=== PATIENT | female | born 1985 | race Caucasian/White ===

== ENCOUNTER 2017-02-21 11:31 | Emergency (ER) | payer OTHER ==
[~2017-02-21] VITALS: Ht 157.5 cm; Wt 64.0 kg
[~2017-02-21 11:31] MED LIST: IBUP800T23 PO
[2017-02-21 11:33] VITALS: BP 134/77; PULSE 80; RESP 20; TEMP 98.1; O2SAT 100; O2SAT 20
[2017-02-21] MEDS ORDERED: SODIUM CHLORIDE 0.9% FLUSH 10 ML FLUSH IV FLUSH PRN (12:00)
[2017-02-21] MEDS ORDERED: SODIUM CHLOR 0.9% 1000 ML INJ 1,000 ML IV SCH (12:00)
[2017-02-21] MEDS ORDERED: ONDANSETRON HCL 4 MG/2 ML VIAL IVP ONE (12:00)
[2017-02-21 12:03] VITALS: BP 118/79; PULSE 72; RESP 20; O2SAT 100
[2017-02-21 12:04] VITALS: RESP 20; O2SAT 98
[2017-02-21] MEDS ORDERED: KETOROLAC TROMETHAMINE 30 MG/ML (IVP) VIAL IV PUSH ONE (12:15)
[2017-02-21] MEDS ORDERED: TETANUS/DIPHTHERIA TOXOID ADULT 0.5 ML VIAL IM ONE (12:15)
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
[2017-02-21 12:51] LABS: AUTOMATED NEUTROPHIL # 9.8 TH/MM3 (1.8-7.7); BASOPHIL # 0.1 TH/MM3 (0-0.2); BASOPHIL % 0.5 % (0.0-2.0); EOSINOPHIL # 0.1 TH/MM3 (0-0.4); EOSINOPHIL % 0.5 % (0.0-4.0); HEMATOCRIT 37.8 % (35.0-46.0); LYMPH % 19.7 % (9.0-44.0); LYMPHOCYTE # 2.7 TH/MM3 (1.0-4.8); MEAN CELL VOLUME 86.5 FL (80.0-100.0); MEAN CORPUSCULAR HEMOGLOBIN 29.6 PG (27.0-34.0); MEAN CORPUSCULAR HGB CONC 34.2 % (32.0-36.0); MONO % 8.1 % (0.0-8.0); NEUT % 71.2 % (16.0-70.0); PLATELET COUNT 287 TH/MM3 (150-450); RED BLOOD COUNT 4.36 MIL/MM3 (4.00-5.30); RED CELL DISTRIBUTION WIDTH 13.4 % (11.6-17.2); WHITE BLOOD COUNT 13.7 TH/MM3 (4.0-11.0)
[2017-02-21 13:01] LABS: BLOOD, URINE NEG (NEG); COMMENT (UR) CULTURE INDICATED; CULTURE IF INDICATED CULTURE INDICATED; GLUCOSE,URINE NEG (NEG); KETONE, URINE 40 mg/dL (NEG); NITRITE,URINE NEG (NEG); SQUAMOUS EPITHELIAL CELL URINE 5 /hpf (0-5); URINE COLOR LIGHT-YELLOW (YELLW/STRAW)
--- NOTE | 2017-02-21 13:06 | RADRPT ---
EXAM DATE/TIME: 02/21/2017 12:09 [facility] COMPARISON: No previous studies available for comparison. INDICATIONS : Left foot pain MEDICAL HISTORY : None. SURGICAL HISTORY : None. ENCOUNTER: Initial ACUITY: 1 day PAIN SCORE: 2/10 LOCATION: Left Foot FINDINGS: Three view examination of the left foot demonstrates no dislocation, or fracture. There is soft tis raman swelling seen lateral to the fifth metatarsal head.The tarsal bones appear intact. The interphal angeal and metatarsophalangeal joints are intact. The calcaneus is intact. Bony mineralization is n ormal. CONCLUSION: Mild lateral soft tissue swelling. An acute bony injury is not seen. Alan Calderon MD on February 21, 2017 at 13:03 Board Certified Radiologist. This report was verified electronically.
[2017-02-21 13:07] LABS: HEMO FLAGS AUTO DIFF
--- NOTE | 2017-02-21 13:08 | RADRPT ---
EXAM DATE/TIME: 02/21/2017 12:12 [facility] COMPARISON: No previous studies available for comparison. INDICATIONS : Right wrist pain MEDICAL HISTORY : None. SURGICAL HISTORY : None. ENCOUNTER: Initial ACUITY: 1 day PAIN SCORE: 10/10 LOCATION: Right wrsit FINDINGS: Three view examination of the right wrist demonstrates no soft tissue swelling, dislocation, or wrist fracture. There is a fracture of the distal fourth metacarpal. The carpal bones are in normal align ment. The joint spaces are maintained. Bony mineralization is normal. CONCLUSION: Fourth metacarpal fracture. The carpal bones appear aligned. Alan Calderon MD on February 21, 2017 at 13:05 Board Certified Radiologist. This report was verified electronically.
[2017-02-21] MEDS ORDERED: cefTRIAXone INJ 1,000 MG in SODIUM CHLORIDE 0.9% INJ 100 ML IV ONE (13:15)
--- NOTE | 2017-02-21 13:19 | RADRPT ---
EXAM DATE/TIME: 02/21/2017 12:11 [facility] COMPARISON: No previous studies available for comparison. INDICATIONS : Right hand pain MEDICAL HISTORY : None. SURGICAL HISTORY : None. ENCOUNTER: Initial ACUITY: 1 day PAIN SCORE: 10/10 LOCATION: Right Hand FINDINGS: There is fracture of the distal fourth metacarpal with some volar angulation. The remaining bones ap pear grossly intact. CONCLUSION: Distal fourth metacarpal fracture. Alan Calderon MD on February 21, 2017 at 13:05 Board Certified Radiologist. This report was verified electronically.
[2017-02-21 13:20] LABS: SCAN/DIFF AUTO DIFF CONFIRMED
[2017-02-21 13:22] LABS: ALKALINE PHOSPHATASE 56 U/L (45-117); ALT (GPT) 18 U/L (10-53); ANION GAP 13 MEQ/L (5-15); AST (GOT) 23 U/L (15-37); BICARBONATE 18.6 MEQ/L (21.0-32.0); BLOOD UREA NITROGEN 5 MG/DL (7-18); CHLORIDE 108 MEQ/L (98-107); GLOMERULAR FILTRATION RATE 90 ML/MIN (>89); SODIUM (NA) 140 MEQ/L (136-145)
[2017-02-21 13:27] LABS: POTASSIUM 3.4 MEQ/L (3.5-5.1)
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
[2017-02-21] MEDS ORDERED: IBUP800T23 PO (15:09)
[2017-02-21] MEDS ORDERED: CIPR250T52 PO (15:31)
[2017-02-21 16:11] VITALS: BP 126/80; PULSE 74; RESP 18; O2SAT 98
[2017-02-21 16:12] VITALS: RESP 18
== END 2017-02-21 16:31 | disposition home or self-care (01) ==
LOC: NEPC 11:31
DX: S62.304A Unspecified fracture of fourth metacarpal bone, right hand, initial encounter for closed fracture (principal); S01.01XA Laceration without foreign body of scalp, initial encounter; S40.021A Contusion of right upper arm, initial encounter; M79.672 Pain in left foot; N30.90 Cystitis, unspecified without hematuria; B96.89 Other specified bacterial agents as the cause of diseases classified elsewhere; Y09 Assault by unspecified means; Z23 Encounter for immunization
CPT/HCPCS: 12001; 29125; 70450; 70486; 72125; 73110; 73130; 73630; 80053; 81001; 84703; 85025; 87086; 90471; 90714; 96361; 96365; 96375; 99284; J0696; J1885; J2405; J7030

== ENCOUNTER 2017-03-04 20:41 | Emergency (ER) | payer OTHER ==
[~2017-03-04] VITALS: Ht 172.7 cm; Wt 75.0 kg
[~2017-03-04 20:41] MED LIST changes: +CIPR250T52 PO
[2017-03-04 20:43] VITALS: BP 131/79; PULSE 74; RESP 15; TEMP 98.6; O2SAT 100
--- NOTE | 2017-03-04 21:30 | PD ---
HPI Chief Complaint: Wound/Suture/Staple Re-Check Time Seen by Provider: 21:30 Travel History International Travel<30 days: No Contact w/Intl Traveler<30days: No Traveled to known affect area: No History of Present Illness HPI 31-year-old female presents to the emergency department for evaluation and removal of kam from her frontal scalp, placed February 22. Patient states she has been healing well. Denies any pain. No local swelling or drainage. She has no other symptoms to report. PFSH Past Medical History Asthma: Yes Depression: Yes Cardiovascular Problems: Yes ("LEAKY VALVES") Diabetes: No Diminished Hearing: No Fibromyalgia: Yes Respiratory: Yes (ASTHMA) Tubal Ligation: Yes Past Surgical History Gynecologic Surgery: Yes (tubal ligation) Social History Alcohol Use: No Tobacco Use: Yes (dip 2 cans snuff daily) Substance Use: No Allergies-Medications (Allergen,Severity, Reaction): Coded Allergies: Bactrim (Verified Allergy, Severe, RASH, 03/04/17) Reported Meds & Prescriptions Reported Meds & Active Scripts Active Cipro (Ciprofloxacin HCl) 250 Mg Tab 250 Mg PO BID 3 Days Ibuprofen 800 Mg Tab 800 Mg PO Q8H PRN Review of Systems Except as stated in HPI: all other systems reviewed are Neg Physical Exam Narrative GENERAL: Well-nourished, well-developed female patient in no acute distress SKIN: Focused skin assessment warm/dry. HEAD: Normocephalic. 1-1/2 cm well approximated laceration of the frontal scalp. [address] No drainage, erythema, or edema. EYES: No scleral icterus. No injection or drainage. NECK: Supple, trachea midline. No JVD or lymphadenopathy. CARDIOVASCULAR: Regular rate and rhythm without murmurs, gallops, or rubs. RESPIRATORY: Breath sounds equal bilaterally. No accessory muscle use. MUSCULOSKELETAL: No cyanosis, or edema. Splint right upper extremity. BACK: Nontender without obvious deformity. No CVA tenderness. Data Data Last Documented VS Vital Signs Date Time Temp Pulse Resp B/P Pulse Ox O2 Delivery O2 Flow Rate FiO2 03/04/17 20:43 98.6 74 15 131/79 100 Room Air MDM Medical Decision Making Medical Screen Exam Complete: Yes Emergency Medical Condition: Yes Medical Record Reviewed: Yes Differential Diagnosis Laceration versus healing wound versus infected wound Narrative Course 31-year-old female presents to the emergency department for staple removal. 2 kam are removed from the laceration the frontal scalp. Patient tolerated this well. She is counseled on wound care. She agrees to return immediately with any acute worsening of symptoms. Diagnosis Primary Impression: Scalp laceration Qualified Code: S01.01XD - Scalp laceration, subsequent encounter Additional Impression: Removal of kam Referrals: Primary Care Physician Patient Instructions: Acute Wound Care (ED), General Instructions Additional Instructions: Avoid picking scabs Follow-up with primary care provider Return immediately with any acute worsening of symptoms Med/Other Pt SpecificInfo: No Change to Meds Disposition: 01 DISCHARGE HOME Condition: Stable Francie Powers March 04, 2017 21:30
== END 2017-03-04 22:03 | disposition home or self-care (01) ==
LOC: NEPK 20:41
DX: S01.01XD Laceration without foreign body of scalp, subsequent encounter (principal); X58.XXXD Exposure to other specified factors, subsequent encounter; Z48.02 Encounter for removal of sutures
CPT/HCPCS: 99281

== ENCOUNTER 2017-05-19 12:50 | Emergency (ER) | payer SELFPAY ==
[~2017-05-19] VITALS: Ht 157.5 cm; Wt 70.0 kg
[2017-05-19 12:52] VITALS: BP 109/75; PULSE 70; RESP 20; TEMP 98.2; O2SAT 99
[2017-05-19] MEDS ORDERED: LORA-392 PO (14:53)
[2017-05-19] MEDS ORDERED: LURA20TA PO (14:53)
[2017-05-19] MEDS ORDERED: RESP: ALBUTEROL 2.5 MG/3 ML NEB (SCH) INH ONE (15:00)
[2017-05-19] MEDS ORDERED: DEXAMETHASONE SOD PHOS 20 MG/5 ML VIAL IV PUSH ONE (15:00)
--- NOTE | 2017-05-19 15:38 | PD ---
HPI Chief Complaint: Respiratory Symptoms Time Seen by Provider: 15:33 Travel History International Travel<30 days: No Contact w/Intl Traveler<30days: No Traveled to known affect area: No History of Present Illness HPI 31-year-old female that presents to the ED for evaluation of choking episode. Per patient she had this choking episode yesterday. Per patient she does have a history of asthma but she has had no issues for 5 years. Per patient she was able to get herself back together after the choking episode was last about 2 minutes. Per patient every time she tried of fall sleep she felt like she was choking. She denies any pain of any kind. She does chew tobacco. She denies . No pain of any kind. No cough or runny nose. No fevers chills or sweats. No dysphagia. Allergy to Bactrim. Has not seen anybody for this. Has not taken anything for this. PFSH Past Medical History Asthma: Yes Depression: Yes Cardiovascular Problems: Yes ("LEAKY VALVES") Diabetes: No Diminished Hearing: No Fibromyalgia: Yes Respiratory: Yes (asthma) Influenza Vaccination: No ?: Not LMP: 05-22-17 Tubal Ligation: Yes Past Surgical History Gynecologic Surgery: Yes (tubal ligation) Social History Alcohol Use: No (occ ) Tobacco Use: Yes (dip 2 cans snuff daily) Substance Use: No Allergies-Medications (Allergen,Severity, Reaction): Coded Allergies: Bactrim (Verified Allergy, Severe, RASH, 05/19/17) Reported Meds & Prescriptions Reported Meds & Active Scripts Active Proair Hfa 8.5 GM Inh (Albuterol Sulfate) 90 Mcg/Act Aer 2 Puff INH Q4-6H PRN 108 mcg/actuation Prednisone 20 Mg Tab 20 Mg PO BID Reported Ativan (Lorazepam) 0.5 Mg Tab 0.5 Mg PO DAILY PRN Latuda (Lurasidone) 20 Mg Tab 20 Mg PO DAILY Review of Systems Except as stated in HPI: all other systems reviewed are Neg Physical Exam Narrative GENERAL: SKIN: Warm and dry. HEAD: Atraumatic. Normocephalic. EYES: Pupils equal and round. No scleral icterus. No injection or drainage. ENT: No nasal bleeding or discharge. Mucous membranes pink and moist. Tongue is midline. No uvula deviation. No obvious deformity noted on the throat. TMs are clear with no sign of infection or perforation. No sinus tenderness. Nostril are patent bilaterally. No lymphadenopathy noted. NECK: Trachea midline. No JVD. CARDIOVASCULAR: Regular rate and rhythm. No murmurs, S3, S4. RESPIRATORY: No accessory muscle use. Clear to auscultation. Breath sounds equal bilaterally. GASTROINTESTINAL: Abdomen soft, non-tender, nondistended. Hepatic and splenic margins not palpable. MUSCULOSKELETAL: Extremities without clubbing, cyanosis, or edema. No obvious deformities. Full range of motion of the upper and lower extremities bilaterally. 2+ pulses bilaterally. NEUROLOGICAL: Awake and alert. No obvious cranial nerve deficits. Motor grossly within normal limits. Five out of 5 muscle strength in the arms and legs. Normal speech. PSYCHIATRIC: Appropriate mood and affect; insight and judgment normal. Data Data Last Documented VS Vital Signs Date Time Temp Pulse Resp B/P Pulse Ox O2 Delivery O2 Flow Rate FiO2 05/19/17 15:56 98 Room Air 05/19/17 14:50 70 18 05/19/17 12:52 98.2 109/75 Orders Complete Blood Count With Diff (05/19/17 14:56) Basic Metabolic Panel (Bmp) (05/19/17 14:56) Magnesium (Mg) (05/19/17 14:56) Thyroid Stimulating Hormone (05/19/17 14:56) Iv Access Insert/Monitor (05/19/17 14:56) Ecg Monitoring (05/19/17 14:56) Oximetry (05/19/17 14:56) Dexamethasone Inj (Decadron Inj) (05/19/17 15:00) Ct Soft Tiss Neck W Iv Cont (05/19/17 ) Albuterol Neb (Albuterol Neb) (05/19/17 15:00) Iohexol 350 Inj (Omnipaque 350 Inj) (05/19/17 16:13) Labs Laboratory Tests Test 05/19/17 15:26 White Blood Count 8.0 TH/MM3 Red Blood Count 4.40 MIL/MM3 Hemoglobin 13.4 GM/DL Hematocrit 39.0 % Mean Corpuscular Volume 88.7 FL Mean Corpuscular Hemoglobin 30.5 PG Mean Corpuscular Hemoglobin 34.3 % Concent Red Cell Distribution Width 13.4 % Platelet Count 335 TH/MM3 Mean Platelet Volume 9.4 FL Neutrophils (%) (Auto) 54.2 % Lymphocytes (%) (Auto) 31.6 % Monocytes (%) (Auto) 7.2 % Eosinophils (%) (Auto) 6.2 % Basophils (%) (Auto) 0.8 % Neutrophils # (Auto) 4.4 TH/MM3 Lymphocytes # (Auto) 2.5 TH/MM3 Monocytes # (Auto) 0.6 TH/MM3 Eosinophils # (Auto) 0.5 TH/MM3 Basophils # (Auto) 0.1 TH/MM3 CBC Comment DIFF FINAL Differential Comment Sodium Level 140 MEQ/L Potassium Level 3.2 MEQ/L Chloride Level 104 MEQ/L Carbon Dioxide Level 26.3 MEQ/L Anion Gap 10 MEQ/L Blood Urea Nitrogen 2 MG/DL Creatinine 0.74 MG/DL Estimat Glomerular Filtration 91 ML/MIN Rate Random Glucose 83 MG/DL Calcium Level 9.1 MG/DL Magnesium Level 2.1 MG/DL Thyroid Stimulating Hormone 1.550 uIU/ML 3rd Gen [facility] Medical Decision Making Medical Screen Exam Complete: Yes Emergency Medical Condition: Yes Medical Record Reviewed: Yes Interpretation(s) CBC & BMP Diagram 05/19/17 15:26 CT neck negative Differential Diagnosis Choking episode versus pharyngitis versus asthma versus abscess versus mass versus epiglottitis less likely Narrative Course 31-year-old female that presents to the ED for evaluation of possible choking episode. Patient was properly examined and was found to have no signs of acute medical distress. Patient does chew tobacco. She has no pain on her throat. At this time because of the episodes that she is having on her tobacco history do recommend imaging to make sure patient doesn't have a mass or infection developing causing the choking episode. She will be given dexamethasone here as well as albuterol inhaler here. She has no signs of anaphylaxis or appears to be in any distress. Labs and imaging showed no sign of acute disease. Patient is in acute distress at this time. Physical exam is reassuring. At this time I recommend close follow with PCP. Patient was given a prescription for prednisone and apparently had a she does have some wheezing on exam. Told to follow closely with PCP. See ED worsening symptoms. Stop using chewing tobacco. Diagnosis Primary Impression: Pharyngitis Qualified Code: J02.9 - Pharyngitis, unspecified etiology Additional Impression: Asthma Qualified Code: J45.20 - Mild intermittent asthma without complication Patient Instructions: General Instructions Additional Instructions: Take meds as prescribed. Follow-up with PCP. See ED worsening symptoms. Med/Other Pt SpecificInfo: Prescription(s) given Scripts Albuterol 8.5 GM Inh (Proair Hfa 8.5 GM Inh)90 Mcg/Act Aer2 Puff INH Q4-6H PRN ( SHORTNESS OF BREATH) #1 INHALER 108 mcg/actuation Prov:Li Mueller MD 05/19/17 Prednisone 20 Mg Tab20 Mg PO BID #10 TAB Prov:Li Mueller MD 05/19/17 Disposition: 01 DISCHARGE HOME Condition: Stable Matthew Adler May 19, 2017 15:38
[2017-05-19 15:53] LABS: AUTOMATED NEUTROPHIL # 4.4 TH/MM3 (1.8-7.7); BASOPHIL # 0.1 TH/MM3 (0-0.2); BASOPHIL % 0.8 % (0.0-2.0); EOSINOPHIL # 0.5 TH/MM3 (0-0.4); EOSINOPHIL % 6.2 % (0.0-4.0); HEMO FLAGS DIFF FINAL; LYMPH % 31.6 % (9.0-44.0); LYMPHOCYTE # 2.5 TH/MM3 (1.0-4.8); MEAN CELL VOLUME 88.7 FL (80.0-100.0); MEAN CORPUSCULAR HEMOGLOBIN 30.5 PG (27.0-34.0); MEAN CORPUSCULAR HGB CONC 34.3 % (32.0-36.0); MONO % 7.2 % (0.0-8.0); NEUT % 54.2 % (16.0-70.0); PLATELET COUNT 335 TH/MM3 (150-450); RED CELL DISTRIBUTION WIDTH 13.4 % (11.6-17.2)
[2017-05-19 15:56] VITALS: O2SAT 98
[2017-05-19] MEDS ORDERED: IOHEXOL 350 MG/ML 10 ML VIAL (for RAD DIAG) IV ONE (16:13)
[2017-05-19 16:20] LABS: BICARBONATE 26.3 MEQ/L (21.0-32.0); MAGNESIUM 2.1 MG/DL (1.5-2.5); POTASSIUM 3.2 MEQ/L (3.5-5.1)
--- NOTE | 2017-05-19 16:42 | RADRPT ---
EXAM DATE/TIME: 05/19/2017 16:09 [place] COMPARISON: No previous studies available for comparison. INDICATIONS : Patient complains of cough,congestion, evaluate for abscess. IV CONTRAST: 55 cc Omnipaque 350 (iohexol) IV RADIATION DOSE: <14.12> CTDIvol (mGy) MEDICAL HISTORY : Cardiovascular disease. asthma SURGICAL HISTORY : Tubal ligation. ENCOUNTER: Initial ACUITY: 1 day PAIN SCALE: 2/10 LOCATION: neck TECHNIQUE: Volumetric scanning of the neck was performed. Using automated exposure control and adjustment of th e mA and/or kV according to patient size, radiation dose was kept as low as reasonably achievable to obtain optimal diagnostic quality images. DICOM format image data is available electronically for r eview and comparison. FINDINGS: NASOPHARYNX: The nasopharyngeal airway has a normal configuration. No mucosal thickening or mass is seen. OROPHARYNX: The intrinsic muscles of the tongue are symmetric. The tonsillar pillars are intact. The prevertebr al soft tissues are not thickened. LARYNX: The supraglottic, glottic, and infraglottic structures are intact. PARAPHARYNGEAL: The parapharyngeal space is intact. SALIVARY GLANDS: The parotid and submandibular glands are intact. LYMPH NODES: No enlarged or necrotic-appearing nodes. THYROID: Homogeneous enhancement without evidence of nodule. BONES: Unremarkable. CONCLUSION: Normal examination. Normal reactive lymph nodes throughout the neck. Benigno Galarza MD on May 19, 2017 at 16:36 Board Certified Radiologist. This report was verified electronically.
[2017-05-19] MEDS ORDERED: PRED20 PO (16:46)
[2017-05-19] MEDS ORDERED: ALBUAER3 INH (16:46)
== END 2017-05-19 17:21 | disposition home or self-care (01) ==
LOC: NEPE 12:50
DX: J02.9 Acute pharyngitis, unspecified (principal); J45.909 Unspecified asthma, uncomplicated; R09.89 Other specified symptoms and signs involving the circulatory and respiratory systems; F32.9 Major depressive disorder, single episode, unspecified; M79.7 Fibromyalgia; F17.220 Nicotine dependence, chewing tobacco, uncomplicated; Z79.899 Other long term (current) drug therapy
CPT/HCPCS: 70491; 80048; 83735; 84443; 85025; 94664; 96374; 99285; J1100; J7613; Q9967

== ENCOUNTER 2017-06-19 14:46 | Emergency (ER) | payer OTHER ==
[~2017-06-19] VITALS: Ht 167.6 cm; Wt 70.0 kg
[~2017-06-19 14:46] MED LIST changes: +ALBUAER3 INH; -CIPR250T52 PO; -IBUP800T23 PO; +LORA-392 PO; +LURA20TA PO; +PRED20 PO
--- NOTE | 2017-06-19 14:52 | PD ---
HPI Chief Complaint: Psychiatric Symptoms Time Seen by Provider: 14:52 Travel History International Travel<30 days: No Contact w/Intl Traveler<30days: No History of Present Illness HPI 32-year-old female brought in under the Burch act with reported overdose of number 160, 200 mg ibuprofen by mouth prostate 3 and half hours prior to arrival. Patient has a history of schizophrenia and schizoaffective disorder, and has been off her meds for approximately 2 weeks according to the police report. Patient was at her work when she was witnessed to have supposedly ingested this amount of ibuprofen. Patient is currently asymptomatic. She is allergic to sulfa. PFSH Past Medical History Asthma: Yes Depression: Yes Cardiovascular Problems: Yes ("LEAKY VALVES") Diabetes: No Diminished Hearing: No Fibromyalgia: Yes Respiratory: Yes (asthma) Tubal Ligation: Yes Past Surgical History Gynecologic Surgery: Yes (tubal ligation) Social History Alcohol Use: No (occ ) Tobacco Use: Yes (dip 2 cans snuff daily) Substance Use: No Allergies-Medications (Allergen,Severity, Reaction): Coded Allergies: sulfamethoxazole (Unverified Allergy, Severe, RASH, 06/19/17) trimethoprim (Unverified Allergy, Severe, RASH, 06/19/17) Reported Meds & Prescriptions Reported Meds & Active Scripts Active Proair Hfa 8.5 GM Inh (Albuterol Sulfate) 90 Mcg/Act Aer 2 Puff INH Q4-6H PRN 108 mcg/actuation Reported Ativan (Lorazepam) 0.5 Mg Tab 0.5 Mg PO DAILY PRN Latuda (Lurasidone) 20 Mg Tab 20 Mg PO DAILY Review of Systems ROS Limitations: Uncooperative Except as stated in HPI: all other systems reviewed are Neg General / Constitutional: No: Fever Eyes: No: Visual changes HENT: No: Headaches Cardiovascular: No: Chest Pain or Discomfort Respiratory: No: Shortness of Breath Gastrointestinal: No: Abdominal Pain Genitourinary: No: Dysuria Musculoskeletal: No: Pain Skin: No Rash Neurologic: No: Weakness Psychiatric: No: Depression Endocrine: No: Polydipsia Hematologic/Lymphatic: No: Easy Bruising Physical Exam Narrative GENERAL: Patient is resting on the exam table in no acute distress. SKIN: Warm and dry. Normal color. Normal turgor. Patient is noted to have an old bruise under the left eye. HEAD: Atraumatic. Normocephalic. Nontender EYES: Pupils equal and round. No scleral icterus. No injection or drainage. ENT: No nasal bleeding or discharge. Mucous membranes pink and moist. Pharynx is clear. Airway is patent. NECK: Trachea midline. Supple. CARDIOVASCULAR: Regular rate and rhythm. RESPIRATORY: No accessory muscle use. Clear to auscultation. Breath sounds equal bilaterally. GASTROINTESTINAL: Abdomen soft, non-tender, nondistended. Hepatic and splenic margins not palpable. MUSCULOSKELETAL: Extremities without clubbing, cyanosis, or edema. No obvious deformities. NEUROLOGICAL: Awake and alert. No obvious cranial nerve deficits. Motor grossly within normal limits. Five out of 5 muscle strength in the arms and legs. Normal speech. PSYCHIATRIC: Appropriate mood and affect; insight and judgment normal. Data Data Last Documented VS Vital Signs Date Time Temp Pulse Resp B/P Pulse Ox O2 Delivery O2 Flow Rate FiO2 06/19/17 18:00 106 16 98/67 98 Room Air 06/19/17 15:13 98.8 Orders Electrocardiogram (06/19/17 15:20) Complete Blood Count With Diff (06/19/17 15:20) Comprehensive Metabolic Panel (06/19/17 15:20) Prothrombin Time / Inr (Pt) (06/19/17 15:20) Act Partial Throm Time (Ptt) (06/19/17 15:20) Osmolality,Serum (06/19/17 15:20) Urinalysis - C+S If Indicated (06/19/17 15:20) Iv Access Insert/Monitor (06/19/17 15:20) Cath For Specimen (06/19/17 15:20) Ecg Monitoring (06/19/17 15:20) Oximetry (06/19/17 15:20) Psych Screen (06/19/17 15:20) Sodium Chloride 0.9% Flush (Ns Flush) (06/19/17 15:30) Sodium Chlor 0.9% 1000 Ml Inj (Ns 1000 M (06/19/17 15:20) Call Poison Control (06/19/17 15:20) Drug Screen, Random Urine (06/19/17 15:20) Alcohol (Ethanol) (06/19/17 15:20) Salicylates (Aspirin) (06/19/17 15:20) Tylenol (Acetaminophen) (06/19/17 15:20) Ed Urine Pregnancytest Poc (06/19/17 16:23) Arterial Blood Gas (Abg) (06/19/17 17:40) Salicylates (Aspirin) (06/19/17 17:40) Labs Laboratory Tests Test 06/19/17 06/19/17 06/19/17 06/19/17 15:35 15:40 18:00 18:15 Urine Color LIGHT-YELLOW Urine Turbidity CLEAR Urine pH 5.5 Urine Specific [place] 1.007 Urine Protein NEG mg/dL Urine Glucose (UA) NEG mg/dL Urine Ketones NEG mg/dL Urine Occult Blood NEG Urine Nitrite NEG Urine Bilirubin NEG Urine Urobilinogen LESS THAN 2.0 MG/DL Urine Leukocyte Esterase TRACE Urine RBC LESS THAN 1 /hpf Urine WBC 1 /hpf Urine Squamous Epithelial 1 /hpf Cells Urine Mucus FEW /lpf Microscopic Urinalysis Comment CULT NOT INDICATED Urine Opiates Screen NEG Urine Barbiturates Screen NEG Urine Amphetamines Screen NEG Urine Benzodiazepines Screen NEG Urine Cocaine Screen NEG Urine Cannabinoids Screen NEG White Blood Count 7.9 TH/MM3 Red Blood Count 4.19 MIL/MM3 Hemoglobin 12.8 GM/DL Hematocrit 37.7 % Mean Corpuscular Volume 90.1 FL Mean Corpuscular Hemoglobin 30.5 PG Mean Corpuscular Hemoglobin 33.9 % Concent Red Cell Distribution Width 13.4 % Platelet Count 238 TH/MM3 Mean Platelet Volume 9.9 FL Neutrophils (%) (Auto) 64.7 % Lymphocytes (%) (Auto) 23.1 % Monocytes (%) (Auto) 9.8 % Eosinophils (%) (Auto) 2.0 % Basophils (%) (Auto) 0.4 % Neutrophils # (Auto) 5.1 TH/MM3 Lymphocytes # (Auto) 1.8 TH/MM3 Monocytes # (Auto) 0.8 TH/MM3 Eosinophils # (Auto) 0.2 TH/MM3 Basophils # (Auto) 0.0 TH/MM3 CBC Comment DIFF FINAL Differential Comment Prothrombin Time 11.3 SEC Prothromb Time International 1.0 RATIO Ratio Activated Partial 30.8 SEC Thromboplast Time Sodium Level 138 MEQ/L Potassium Level 4.0 MEQ/L Chloride Level 106 MEQ/L Carbon Dioxide Level 22.8 MEQ/L Anion Gap 9 MEQ/L Blood Urea Nitrogen 11 MG/DL Creatinine 0.77 MG/DL Estimat Glomerular Filtration 86 ML/MIN Rate Random Glucose 92 MG/DL Serum Osmolality 292 MOSM/KG Calcium Level 8.2 MG/DL Total Bilirubin 0.4 MG/DL Aspartate Amino Transf 14 U/L (AST/SGOT) Alanine Aminotransferase 18 U/L (ALT/SGPT) Alkaline Phosphatase 59 U/L Total Protein 7.0 GM/DL Albumin 4.3 GM/DL Salicylates Level LESS THAN 1.7 LESS THAN 1.7 MG/DL MG/DL Acetaminophen Level LESS THAN 2.0 MCG/ML Ethyl Alcohol Level LESS THAN 3 MG/DL Blood Gas Puncture Site RT RADIAL Blood Gas Patient Temperature 98.6 Blood Gas HCO3 15 mmol/L Blood Gas Base Excess -9.2 mmol/L Blood Gas Oxygen Saturation 97 % Arterial Blood pH 7.36 Arterial Blood Partial 28 mmHg Pressure CO2 Arterial Blood Partial 122 mmHG Pressure O2 Arterial Blood Oxygen Content 17.7 Vol % Arterial Blood 0.8 % Carboxyhemoglobin Arterial Blood Methemoglobin 0.5 % Blood Gas Hemoglobin 12.8 G/DL Blood Gas Inspired Oxygen 21 % MDM Medical Decision Making Medical Screen Exam Complete: Yes Emergency Medical Condition: Yes Differential Diagnosis Ibuprofen overdose. Suicidal ideation. Psychiatric symptoms. Burch act. Narrative Course Patient appears medically stable at time of exam. Labs ordered including CBC, CMP, serum EtOH, serum Tylenol, serum salicylate level. Coagulation studies and serum osmolality ordered. Urinalysis, and urine . Urine drug screen is ordered as well. IV access is obtained patient is given 1000 mg normal saline bolus. Poison control was contacted, and they recommended observing the patient for at least 3-4 hours and watch for abdominal symptoms and acidosis. CBC is unremarkable. Coagulation studies are unremarkable. Urine drug screen negative. Serum salicylate level is 1.7. Serum acetaminophen level is >2.0 Serum alcohol level is 3 CMP shows no significant findings. Serum osmolality is 292 Repeat salicylate level is ordered after 2 hours, as well as baseline arterial blood gas per poison control recommendation. Repeat salicylate level is unchanged. Arterial blood Shows her not to be acidotic. Patient and labs are reviewed with Dr. Moura who is now on duty. Patient is felt to be medically cleared for psychiatric evaluation at this time. Diagnosis Primary Impression: Intentional ibuprofen overdose Qualified Code: T39.312A - Intentional ibuprofen overdose, initial encounter Additional Impression: Medical clearance for psychiatric admission Condition: Stable Stanislav Fried Jun 19, 2017 14:52
[2017-06-19 15:13] VITALS: BP 100/63; PULSE 76; RESP 20; TEMP 98.8; O2SAT 99
[2017-06-19] MEDS ORDERED: SODIUM CHLOR 0.9% 1000 ML INJ 1,000 ML IV ONE (15:20)
[2017-06-19] MEDS ORDERED: SODIUM CHLORIDE 0.9% FLUSH 10 ML FLUSH IVF PRN (15:30)
[2017-06-19 16:30] VITALS: BP 101/66; PULSE 90; RESP 20; O2SAT 98
[2017-06-19 17:02] LABS: BLOOD, URINE NEG (NEG); GLUCOSE,URINE NEG (NEG); KETONE, URINE NEG (NEG); MUCUS URINE FEW /lpf (OCC); NITRITE,URINE NEG (NEG); PH, URINE 5.5 (5.0-8.5); SQUAMOUS EPITHELIAL CELL URINE 1 /hpf (0-5); URINE COLOR LIGHT-YELLOW (YELLW/STRAW)
[2017-06-19 17:02] LABS: AUTOMATED NEUTROPHIL # 5.1 TH/MM3 (1.8-7.7); BASOPHIL % 0.4 % (0.0-2.0); EOSINOPHIL # 0.2 TH/MM3 (0-0.4); HEMATOCRIT 37.7 % (35.0-46.0); HEMO FLAGS DIFF FINAL; LYMPH % 23.1 % (9.0-44.0); LYMPHOCYTE # 1.8 TH/MM3 (1.0-4.8); MEAN CELL VOLUME 90.1 FL (80.0-100.0); MEAN CORPUSCULAR HEMOGLOBIN 30.5 PG (27.0-34.0); MEAN CORPUSCULAR HGB CONC 33.9 % (32.0-36.0); MONO % 9.8 % (0.0-8.0); NEUT % 64.7 % (16.0-70.0); PLATELET COUNT 238 TH/MM3 (150-450); RED BLOOD COUNT 4.19 MIL/MM3 (4.00-5.30); RED CELL DISTRIBUTION WIDTH 13.4 % (11.6-17.2); WHITE BLOOD COUNT 7.9 TH/MM3 (4.0-11.0)
[2017-06-19 17:03] LABS: COMMENT (UR) CULT NOT INDICATED; CULTURE IF INDICATED CULT NOT INDICATED
[2017-06-19 17:14] LABS: APTT (PATIENT) 30.8 SEC (24.3-30.1); PROTHROMBIN TIME - PATIENT 11.3 SEC (9.8-11.6)
[2017-06-19 17:27] LABS: ANION GAP 9 MEQ/L (5-15); AST (GOT) 14 U/L (15-37); BICARBONATE 22.8 MEQ/L (21.0-32.0); BLOOD UREA NITROGEN 11 MG/DL (7-18); CHLORIDE 106 MEQ/L (98-107); GLOMERULAR FILTRATION RATE 86 ML/MIN (>89); SODIUM (NA) 138 MEQ/L (136-145)
[2017-06-19 17:28] LABS: ALCOHOL LESS THAN 3 MG/DL (0-5)
[2017-06-19 17:31] LABS: ALKALINE PHOSPHATASE 59 U/L (45-117); ALT (GPT) 18 U/L (10-53); TOTAL BILIRUBIN ADULT 0.4 MG/DL (0.2-1.0)
[2017-06-19 17:34] LABS: ACETAMINOPHEN LESS THAN 2.0 MCG/ML (10.0-30.0)
[2017-06-19 18:00] VITALS: BP 98/67; PULSE 106; RESP 16; O2SAT 98
[2017-06-19 18:28] LABS: BLOOD GAS BASE EXCESS -9.2 mmol/L (-2-2); BLOOD GAS CARBOXYHEMOGLOBIN 0.8 % (0-4); BLOOD GAS HCO3 15 mmol/L (22-26); BLOOD GAS METHEMOGLOBIN 0.5 % (0-2); BLOOD GAS O2 HGB SATURATION 97 % (90-100); BLOOD GAS OXYGEN CONTENT 17.7 Vol % (12.0-20.0); BLOOD GAS PCO2 28 mmHg (38-42); BLOOD GAS PO2 122 mmHG (61-120); BLOOD GAS TOTAL HGB 12.8 G/DL (12.0-16.0); TEMP CORR TO 98.6
[2017-06-19 18:29] LABS: CRITICAL VALUE YES
[2017-06-19 18:30] LABS: DRAW SITE RT RADIAL; FIO2 21 %; NUMBER OF ARTERIAL PUNCTURES 1; STAT YES; ULNAR PULSE PRESENT
[2017-06-19 20:04] VITALS: BP 124/79; PULSE 89; RESP 16; O2SAT 98
[2017-06-19] MEDS ORDERED: ONDANSETRON HCL 4 MG/2 ML VIAL IV PUSH ONE (20:30)
[2017-06-19] MEDS ORDERED: FAMOTIDINE 20 MG/2 ML VIAL IV PUSH ONE (20:30)
[2017-06-19] MEDS ORDERED: HALOPERIDOL LACTATE 5 MG/ML AMP IM ONE ×2 (20:45)
[2017-06-19] MEDS ORDERED: LORazepam 2 MG/ML VIAL IM ONE (20:45)
[2017-06-19 22:30] VITALS: BP 124/77; PULSE 80; RESP 18; TEMP 97; O2SAT 100
[2017-06-20 06:46] VITALS: BP 100/61; PULSE 73; RESP 18; O2SAT 98
[2017-06-20 11:52] VITALS: BP 111/58; PULSE 74; RESP 18; TEMP 94.9; O2SAT 99
--- NOTE | 2017-06-20 15:46 | EKG ---
Date Performed: 06/19/2017 Time Performed: 15:41:50 PTAGE: 32 years EKG: Sinus rhythm Within normal limits Compared to previous tracing, the late R wave transition has resolved BORDERLIN E ECG PREVIOUS TRACING : 03/10/2008 06.18 DOCTOR: Chidi Mata Interpretating Date/Time 06/20/2017 15:45:41
[2017-06-20 17:55] VITALS: BP 155/77; PULSE 92; RESP 18; O2SAT 97
[2017-06-20 21:41] VITALS: BP 107/67; PULSE 76; RESP 18
[2017-06-21 06:46] VITALS: BP 110/68; PULSE 69; RESP 18
[2017-06-21 08:46] VITALS: BP 110/68; PULSE 69; RESP 18
== END 2017-06-21 11:32 ==
LOC: NEPD 14:46 → NEPJ 06-21 11:32
DX: Z02.89 Encounter for other administrative examinations (principal); T39.312A Poisoning by propionic acid derivatives, intentional self-harm, initial encounter; R94.31 Abnormal electrocardiogram [ECG] [EKG]; Z72.0 Tobacco use; Z86.59 Personal history of other mental and behavioral disorders; Z87.09 Personal history of other diseases of the respiratory system; Z86.79 Personal history of other diseases of the circulatory system; Z87.39 Personal history of other diseases of the musculoskeletal system and connective tissue
CPT/HCPCS: 36600; 80053; 80307; 81001; 82805; 83930; 84703; 85025; 85610; 85730; 93005; 96361; 96372; 96374; 96375; 99284; J1630; J2060; J2405; J7030

== ENCOUNTER 2017-07-26 11:29 | Emergency (ER) | payer OTHER ==
[~2017-07-26] VITALS: Ht 157.5 cm; Wt 70.0 kg
[~2017-07-26 11:29] MED LIST changes: -PRED20 PO
[2017-07-26 11:46] VITALS: BP 109/73; PULSE 64; RESP 18; TEMP 98.5; O2SAT 100
[2017-07-26] MEDS ORDERED: PAXI10TA2 PO (11:50)
[2017-07-26] MEDS ORDERED: SODIUM CHLOR 0.9% 1000 ML INJ 1,000 ML IV SCH (12:16)
--- NOTE | 2017-07-26 12:28 | PD ---
HPI Chief Complaint: Abdominal Pain Time Seen by Provider: 12:08 Travel History International Travel<30 days: No Contact w/Intl Traveler<30days: No Traveled to known affect area: No History of Present Illness HPI 32-year-old female presents to the emergency department for evaluation of abdominal pain, bloody vaginal discharge, vaginal pressure. Patient states she has been having intermittent right lower quadrant abdominal pain for approximately month. However, last night, she also noticed bloody clear vaginal discharge. She states she has vaginal pressure as well. She denies any fevers or chills. No chest pain or shortness of breath. Patient reports history of tubal ligation. No other abdominal surgeries. She reports nausea, but no vomiting. She reports decreased urination. She denies risk of STDs reporting no new sexual partners. Patient reports pain in a monogamous relationship for one year. She also reports constipation, no diarrhea. Patient has history of bipolar disorder, TIA, asthma. PFSH Past Medical History Asthma: Yes Bipolar Disorder: Yes Depression: Yes Cardiovascular Problems: Yes ("LEAKY VALVES") Diabetes: No Diminished Hearing: No Fibromyalgia: Yes Respiratory: Yes (asthma) Schizophrenia: Yes ?: Unknown Tubal Ligation: Yes Past Surgical History Gynecologic Surgery: Yes (tubal ligation) Social History Alcohol Use: No Tobacco Use: No (DIP ) Substance Use: No Allergies-Medications (Allergen,Severity, Reaction): Coded Allergies: sulfamethoxazole (Unverified Allergy, Severe, RASH, 06/19/17) trimethoprim (Unverified Allergy, Severe, RASH, 06/19/17) Reported Meds & Prescriptions Reported Meds & Active Scripts Active Reported Paxil (Paroxetine HCl) 10 Mg Tab 10 Mg PO DAILY Ativan (Lorazepam) 0.5 Mg Tab 0.5 Mg PO DAILY PRN Latuda (Lurasidone) 20 Mg Tab 20 Mg PO DAILY Review of Systems Except as stated in HPI: all other systems reviewed are Neg Physical Exam Narrative GENERAL: Well-nourished, well-developed female patient, afebrile. SKIN: Focused skin assessment warm/dry. HEAD: Normocephalic. Atraumatic. EYES: No scleral icterus. No injection or drainage. NECK: Supple, trachea midline. No JVD or lymphadenopathy. CARDIOVASCULAR: Regular rate and rhythm without murmurs, gallops, or rubs. RESPIRATORY: Breath sounds equal bilaterally. No accessory muscle use. Lungs sounds are clear to auscultation GASTROINTESTINAL: Abdomen soft and nondistended. Patient has tenderness to palpation of the left upper quadrant, right lower quadrant McBurney's point, suprapubic tenderness. MUSCULOSKELETAL: No cyanosis, or edema. BACK: Nontender without obvious deformity. No CVA tenderness. Data Data Last Documented VS Vital Signs Date Time Temp Pulse Resp B/P (MAP) Pulse Ox O2 Delivery O2 Flow Rate FiO2 07/26/17 12:46 60 98/64 (75) 07/26/17 12:45 100 Room Air 07/26/17 11:48 18 07/26/17 11:46 98.5 Orders Orders Complete Blood Count With Diff (07/26/17 12:16) Comprehensive Metabolic Panel (07/26/17 12:16) Lipase (07/26/17 12:16) Urinalysis - C+S If Indicated (07/26/17 12:16) Ct Abd/Pel W Iv Contrast(Rout) (07/26/17 12:16) Iv Access Insert/Monitor (07/26/17 12:16) Ecg Monitoring (07/26/17 12:16) Oximetry (07/26/17 12:16) Morphine Inj (Morphine Inj) (07/26/17 12:30) Ondansetron Inj (Zofran Inj) (07/26/17 12:30) Sodium Chlor 0.9% 1000 Ml Inj (Ns 1000 M (07/26/17 12:16) Sodium Chloride 0.9% Flush (Ns Flush) (07/26/17 12:30) Ed Urine Pregnancytest Poc (07/26/17 12:16) Gc And Chlamydia Pcr (07/26/17 12:16) Wet Prep Profile (07/26/17 12:16) Urine Culture (07/26/17 12:15) Iohexol 350 Inj (Omnipaque 350 Inj) (07/26/17 14:25) Ceftriaxone Inj (Rocephin Inj) (07/26/17 15:00) Labs Laboratory Tests Test 07/26/17 12:10 07/26/17 12:15 07/26/17 13:40 White Blood Count 11.1 TH/MM3 Red Blood Count 4.06 MIL/MM3 Hemoglobin 12.1 GM/DL Hematocrit 36.5 % Mean Corpuscular Volume 89.9 FL Mean Corpuscular Hemoglobin 29.9 PG Mean Corpuscular Hemoglobin Concent 33.2 % Red Cell Distribution Width 13.4 % Platelet Count 317 TH/MM3 Mean Platelet Volume 9.5 FL Neutrophils (%) (Auto) 68.7 % Lymphocytes (%) (Auto) 22.0 % Monocytes (%) (Auto) 7.2 % Eosinophils (%) (Auto) 1.4 % Basophils (%) (Auto) 0.7 % Neutrophils # (Auto) 7.6 TH/MM3 Lymphocytes # (Auto) 2.4 TH/MM3 Monocytes # (Auto) 0.8 TH/MM3 Eosinophils # (Auto) 0.2 TH/MM3 Basophils # (Auto) 0.1 TH/MM3 CBC Comment DIFF FINAL Differential Comment Blood Urea Nitrogen 10 MG/DL Creatinine 0.74 MG/DL Random Glucose 78 MG/DL Total Protein 7.1 GM/DL Albumin 3.6 GM/DL Calcium Level 8.4 MG/DL Alkaline Phosphatase 84 U/L Aspartate Amino Transf (AST/SGOT) 18 U/L Alanine Aminotransferase (ALT/SGPT) 22 U/L Total Bilirubin 0.6 MG/DL Sodium Level 140 MEQ/L Potassium Level 3.9 MEQ/L Chloride Level 108 MEQ/L Carbon Dioxide Level 24.2 MEQ/L Anion Gap 8 MEQ/L Estimat Glomerular Filtration Rate 90 ML/MIN Lipase 96 U/L Urine Color YELLOW Urine Turbidity CLOUDY Urine pH 8.0 Urine Specific [place] 1.021 Urine Protein 100 mg/dL Urine Glucose (UA) NEG mg/dL Urine Ketones NEG mg/dL Urine Occult Blood MOD Urine Nitrite NEG Urine Bilirubin NEG Urine Urobilinogen 2.0 MG/DL Urine Leukocyte Esterase LARGE Urine RBC 66 /hpf Urine WBC /hpf Urine WBC Clumps RARE Urine Squamous Epithelial Cells 4 /hpf Urine Bacteria FEW /hpf Urine Mucus MOD /lpf Microscopic Urinalysis Comment CULTURE INDICATED Clue Cells (Wet Prep) PRESENT Vaginal Trichomonas (Wet Prep) NONE SEEN Vaginal Yeast (Wet Prep) NONE SEEN MDM Medical Decision Making Medical Screen Exam Complete: Yes Emergency Medical Condition: Yes Medical Record Reviewed: Yes Interpretation(s) Last Impressions Abdomen/Pelvis CT 07/26/17 1216 Signed Impressions: Service Date/Time: Wednesday, July 26, 2017 14:18 - CONCLUSION: No acute disease. Left adnexal cyst. Speedy Hough MD Differential Diagnosis Cervicitis versus UTI versus chondritis versus appendicitis versus pancreatitis versus diverticulitis Narrative Course 32-year-old female presents to the emergency department for evaluation of abdominal pain, vaginal discharge. CBC, CMP, lipase, UA, urine test ordered and pending. Patient gives verbal consent for pelvic exam. Wet prep and swabs for Chlamydia/gonorrhea are ordered and pending. Patient is given normal saline 1 L IV bolus, Zofran 4 mg IV, morphine 4 mg IV for pain. CBC shows leukocytosis of 11.1, otherwise unremarkable. CMP shows no acute abnormality. Lipase is 96. UA shows large leukocyte esterase, innumerable WBC , 66 RBC. UPT is negative. Wet prep is positive for clue cells, negative for Trichomonas or yeast. CT abdomen/pelvis shows no acute abnormality, left adnexal cyst. Patient is given Rocephin 1 g IV for UTI. Patient will be discharged with a prescription for Macrobid and Flagyl. I discussed the findings with the patient who verbalizes agreement and understanding. The patient was discharged in stable condition with instructions, including return instructions and follow up instructions. Diagnosis Primary Impression: Urinary tract infection Qualified Codes: N30.01 - Acute cystitis with hematuria Additional Impression: Bacterial vaginosis Referrals: Demand Generation Manager Primary Care Physician Patient Instructions: Bacterial Vaginosis (ED), General Instructions, Urinary Tract Infection in Women (ED) Additional Instructions: Take Macrobid as directed until gone. Take Flagyl as directed until gone. Do not drink alcohol taking this medication. Follow-up with her primary care physician or church warden. Return to the emergency department for any acute worsening of symptoms. Med/Other Pt SpecificInfo: Prescription(s) given Scripts Metronidazole (Flagyl) 500 Mg Tab 500 MG PO BID for Infection for 7 Days, #14 TAB 0 Refills Prov: Oneida Sotomayor 07/26/17 Nitrofurantoin Monohydrate Macrocrystals (Macrobid) 100 Mg Capsule 100 MG PO BID for Infection for 7 Days, #14 CAP 0 Refills Prov: Oneida Sotomayor 07/26/17 Disposition: 01 DISCHARGE HOME Condition: Stable Oneida Sotomayor Jul 26, 2017 12:28
[2017-07-26] MEDS ORDERED: ONDANSETRON HCL 4 MG/2 ML VIAL IVP ONE (12:30)
[2017-07-26] MEDS ORDERED: MORPHINE SULFATE 4 MG/ML INJ IV PUSH ONE (12:30)
[2017-07-26] MEDS ORDERED: SODIUM CHLORIDE 0.9% FLUSH 10 ML FLUSH IV FLUSH PRN (12:30)
[2017-07-26 12:45] VITALS: O2SAT 100
[2017-07-26 12:46] VITALS: BP 98/64; PULSE 60
[2017-07-26 13:04] LABS: AUTOMATED NEUTROPHIL # 7.6 TH/MM3 (1.8-7.7); BASOPHIL # 0.1 TH/MM3 (0-0.2); BASOPHIL % 0.7 % (0.0-2.0); EOSINOPHIL # 0.2 TH/MM3 (0-0.4); EOSINOPHIL % 1.4 % (0.0-4.0); HEMATOCRIT 36.5 % (35.0-46.0); HEMO FLAGS DIFF FINAL; LYMPHOCYTE # 2.4 TH/MM3 (1.0-4.8); MEAN CELL VOLUME 89.9 FL (80.0-100.0); MEAN CORPUSCULAR HEMOGLOBIN 29.9 PG (27.0-34.0); MEAN CORPUSCULAR HGB CONC 33.2 % (32.0-36.0); MONO % 7.2 % (0.0-8.0); NEUT % 68.7 % (16.0-70.0); PLATELET COUNT 317 TH/MM3 (150-450); RED BLOOD COUNT 4.06 MIL/MM3 (4.00-5.30); RED CELL DISTRIBUTION WIDTH 13.4 % (11.6-17.2); WHITE BLOOD COUNT 11.1 TH/MM3 (4.0-11.0)
[2017-07-26 13:10] LABS: BACTERIA, URINE FEW /hpf; BLOOD, URINE MOD (NEG); COMMENT (UR) CULTURE INDICATED; CULTURE IF INDICATED CULTURE INDICATED; GLUCOSE,URINE NEG (NEG); KETONE, URINE NEG (NEG); MUCUS URINE MOD /lpf (OCC); NITRITE,URINE NEG (NEG); SQUAMOUS EPITHELIAL CELL URINE 4 /hpf (0-5); URINE COLOR YELLOW (YELLW/STRAW)
[2017-07-26 13:31] LABS: ANION GAP 8 MEQ/L (5-15); AST (GOT) 18 U/L (15-37); BICARBONATE 24.2 MEQ/L (21.0-32.0); BLOOD UREA NITROGEN 10 MG/DL (7-18); CHLORIDE 108 MEQ/L (98-107); GLOMERULAR FILTRATION RATE 90 ML/MIN (>89); POTASSIUM 3.9 MEQ/L (3.5-5.1); SODIUM (NA) 140 MEQ/L (136-145)
[2017-07-26 13:34] LABS: ALKALINE PHOSPHATASE 84 U/L (45-117); ALT (GPT) 22 U/L (10-53); TOTAL BILIRUBIN ADULT 0.6 MG/DL (0.2-1.0)
[2017-07-26] MEDS ORDERED: IOHEXOL 350 MG/ML 10 ML VIAL (for RAD DIAG) IVCONTRAST ONE (14:25)
--- NOTE | 2017-07-26 14:44 | RADRPT ---
EXAM DATE/TIME: 07/26/2017 14:18 [facility] COMPARISON: No previous studies available for comparison. INDICATIONS : Right lower quadrant pain, bloody discharge and nausea. IV CONTRAST: 86 cc Omnipaque 350 (iohexol) IV ORAL CONTRAST: No oral contrast ingested. RADIATION DOSE: 9.96 CTDIvol (mGy) MEDICAL HISTORY : None SURGICAL HISTORY : Tubal ligation. ENCOUNTER: Initial ACUITY: 1 day PAIN SCALE: 4/10 LOCATION: Right lower quadrant TECHNIQUE: Volumetric scanning of the abdomen and pelvis was performed. Using automated exposure control and ad justment of the mA and/or kV according to patient size, radiation dose was kept as low as reasonably achievable to obtain optimal diagnostic quality images. DICOM format image data is available electro nically for review and comparison. FINDINGS: No pleural or pericardial effusions. Lung bases are clear. There is motion artifact. Spleen, jayshree er, pancreas, adrenals, kidneys, urinary bladder are unremarkable. There is a cyst associated with th e left ovary measuring 1.8 cm. Right ovary unremarkable. No there is no evidence of a bowel obstructi on. The appendix is normal. CONCLUSION: No acute disease. Left adnexal cyst. Speedy Hough MD on July 26, 2017 at 14:40 Board Certified Radiologist. This report was verified electronically.
[2017-07-26] MEDS ORDERED: cefTRIAXone INJ 1,000 MG in SODIUM CHLORIDE 0.9% INJ 100 ML IV ONE (15:00)
[2017-07-26] MEDS ORDERED: MACR100C2 PO (15:03)
[2017-07-26] MEDS ORDERED: METR-1 PO (15:03)
[2017-07-26 16:25] LABS: CHLAMYDIA PCR NOT DETECTED (NOT DETECT); NEISSERIA PCR NOT DETECTED (NOT DETECT)
== END 2017-07-26 16:07 | disposition home or self-care (01) ==
LOC: NEPC 11:29
DX: N30.01 Acute cystitis with hematuria (principal); B96.20 Unspecified Escherichia coli [E. coli] as the cause of diseases classified elsewhere; N76.0 Acute vaginitis; J45.909 Unspecified asthma, uncomplicated; M79.7 Fibromyalgia; Z79.899 Other long term (current) drug therapy
CPT/HCPCS: 74177; 80053; 81001; 83690; 84703; 85025; 87077; 87086; 87186; 87210; 87491; 87591; 96361; 96365; 96375; 99285; J0696; J2270; J2405; J7030; Q9967

== ENCOUNTER 2017-08-07 11:34 | Emergency (ER) | payer OTHER ==
[~2017-08-07] VITALS: Ht 157.5 cm; Wt 64.0 kg
[~2017-08-07 11:34] MED LIST changes: -ALBUAER3 INH; +MACR100C2 PO; +METR-1 PO; +PAXI10TA2 PO
[2017-08-07 11:37] VITALS: BP 133/74; PULSE 71; RESP 15; TEMP 98.4; O2SAT 97
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
[2017-08-07] MEDS ORDERED: KETOROLAC TROMETHAMINE 60 MG/2 ML (IM) VIAL IM ONE (13:00)
[2017-08-07] MEDS ORDERED: ORPHENADRINE INJ 60 MG/2 ML AMP IM ONE (13:00)
[2017-08-07] MEDS ORDERED: IBUP800T23 PO (13:21)
[2017-08-07] MEDS ORDERED: ROBA500T PO (13:21)
== END 2017-08-07 13:45 | disposition home or self-care (01) ==
LOC: NEPD 11:34
DX: S16.1XXA Strain of muscle, fascia and tendon at neck level, initial encounter (principal); V43.52XA Car driver injured in collision with other type car in traffic accident, initial encounter
CPT/HCPCS: 96372; 99284; J1885; J2360

== ENCOUNTER 2017-08-09 14:26 | Emergency (ER) | payer OTHER ==
[~2017-08-09] VITALS: Ht 157.5 cm; Wt 65.0 kg
[~2017-08-09 14:26] MED LIST changes: +IBUP800T23 PO; +ROBA500T PO
[2017-08-09 14:27] VITALS: BP 131/92; PULSE 100; RESP 14; TEMP 98.4; O2SAT 98
[2017-08-09] MEDS ORDERED: LURA20TA PO ×2 (15:28→15:37)
[2017-08-09] MEDS ORDERED: LORA-474 PO ×3 (15:28→15:46)
[2017-08-09] MEDS ORDERED: PAXI10TA2 PO ×2 (15:28→15:37)
[2017-08-09 15:34] VITALS: BP 110/71; PULSE 87; RESP 18; O2SAT 97
--- NOTE | 2017-08-09 15:44 | PD ---
HPI Chief Complaint: Psychiatric Symptoms Time Seen by Provider: 15:08 Travel History International Travel<30 days: No Contact w/Intl Traveler<30days: No Traveled to known affect area: No History of Present Illness HPI 32-year-old female that presents to the ED for evaluation of psychiatric illness. Patient essentially came here with mother who is taking care of the patient and apparently patient has been out of her psychiatric medications for about 3 weeks. She's been becoming more bizarre and anxious per mother. Patient used to be on Paxil, what to do and Ativan with good relief and patient was for the most part baseline until she stopped taking her medication about 3 weeks ago. Per family and patient the patient in for she doesn't have insurance and the patient herself is not good with follow-up. Mother herself is taking charge of the patient and made an appointment with a psychiatrist on but she was hoping she could get a short refill until she can see the psychiatrist on to get her more stabilized. Patient herself denies any suicidal or homicidal ideation. No chest pain or shortness of breath. She was diagnosed with bipolar and schizophrenia last year. She has been Burch acted before. Denies any substance abuse. PFSH Past Medical History Asthma: Yes Bipolar Disorder: Yes Anxiety: Yes Depression: Yes Cardiovascular Problems: Yes Cerebrovascular Accident: Yes Diabetes: No Diminished Hearing: No Fibromyalgia: Yes Respiratory: Yes (ASTHMA) Schizophrenia: Yes ?: Not LMP: 08/09/17 Tubal Ligation: Yes Past Surgical History Gynecologic Surgery: Yes (tubal ligation) Social History Alcohol Use: No Tobacco Use: No (DIP ) Substance Use: No Allergies-Medications (Allergen,Severity, Reaction): Coded Allergies: sulfamethoxazole (Unverified Allergy, Severe, RASH, 08/09/17) trimethoprim (Unverified Allergy, Severe, RASH, 08/09/17) Reported Meds & Prescriptions Reported Meds & Active Scripts Active Ativan (Lorazepam) 1 Mg Tab 1 Mg PO Q8H PRN Latuda (Lurasidone) 20 Mg Tab 20 Mg PO HS Paxil (Paroxetine HCl) 10 Mg Tab 20 Mg PO DAILY 7 Days Ibuprofen 800 Mg Tab 800 Mg PO Q8H PRN Robaxin (Methocarbamol) 500 Mg Tab 500 Mg PO QID PRN Flagyl (Metronidazole) 500 Mg Tab 500 Mg PO BID 7 Days Macrobid (Nitrofurantoin Monohydrate Macrocrystals) 100 Mg Capsule 100 Mg PO BID 7 Days Reported Paxil (Paroxetine HCl) 10 Mg Tab 10 Mg PO DAILY Ativan (Lorazepam) 0.5 Mg Tab 0.5 Mg PO DAILY PRN Latuda (Lurasidone) 20 Mg Tab 20 Mg PO DAILY Review of Systems Except as stated in HPI: all other systems reviewed are Neg Physical Exam Narrative GENERAL: SKIN: Warm and dry. HEAD: Atraumatic. Normocephalic. EYES: Pupils equal and round. No scleral icterus. No injection or drainage. ENT: No nasal bleeding or discharge. Mucous membranes pink and moist. Tongue is midline. No uvula deviation. NECK: Trachea midline. No JVD. CARDIOVASCULAR: Regular rate and rhythm. RESPIRATORY: No accessory muscle use. Clear to auscultation. Breath sounds equal bilaterally. GASTROINTESTINAL: Abdomen soft, non-tender, nondistended. Hepatic and splenic margins not palpable. MUSCULOSKELETAL: Extremities without clubbing, cyanosis, or edema. No obvious deformities. Full range of motion of the upper and lower extremities bilaterally. 2+ pulses bilaterally. NEUROLOGICAL: Awake and alert. No obvious cranial nerve deficits. Motor grossly within normal limits. Five out of 5 muscle strength in the arms and legs. Normal speech. PSYCHIATRIC: Appropriate mood and affect; insight and judgment normal. Data Data Last Documented VS Vital Signs Date Time Temp Pulse Resp B/P (MAP) Pulse Ox O2 Delivery O2 Flow Rate FiO2 08/09/17 15:34 87 18 110/71 (84) 97 Room Air 08/09/17 14:27 98.4 MDM Medical Decision Making Medical Screen Exam Complete: Yes Emergency Medical Condition: Yes Medical Record Reviewed: Yes Differential Diagnosis Medication refill versus bipolar disorder versus schizophrenia versus normal exam Narrative Course 32-year-old female that presents to the ED for evaluation of medication refill. Patient was properly examined and was found to have signs and symptoms consistent with septic illness and basically medication refill. Patient has an appointment with an outpatient psychiatrist. Psychiatry evaluation was offered to the patient and she declined. She is no suicidal or homicidal and she does not meet Burch act criteria. Patient is under the care of the mother who seems reasonable. At this time I will give a short prescription of the Paxil and latuda for the patient to hold her for a week. She understands that she needs to follow-up outpatient. Mother and patient agree with this plan. She was told that she needs to get the refills done outpatient and not in the hospital. She agrees and understands. See ED worsening symptoms. Follow with PCP. Diagnosis Primary Impression: Bipolar 1 disorder Patient Instructions: General Instructions Additional Instructions: Take medications as prescribed. Follow with psychiatrist to get refills of her medications. See ED for worsening symptoms. Med/Other Pt SpecificInfo: Prescription(s) given Scripts Lorazepam (Ativan) 1 Mg Tab 1 MG PO Q8H Y for ANXIETY AND/OR AGITATION, #12 TAB 0 Refills Prov: Gus Gray MD 08/09/17 Lurasidone (Latuda) 20 Mg Tab 20 MG PO HS, #7 TAB 0 Refills Prov: Gus Gray MD 08/09/17 Paroxetine (Paxil) 10 Mg Tab 20 MG PO DAILY for 7 Days, #14 TAB 0 Refills Prov: Gus Gray MD 08/09/17 Disposition: 01 DISCHARGE HOME Condition: Stable Matthew Adler Aug 09, 2017 15:44
[2017-08-09 16:30] VITALS: BP 99/71
== END 2017-08-09 16:32 | disposition home or self-care (01) ==
LOC: NEPD 14:26
DX: F31.9 Bipolar disorder, unspecified (principal); Z86.59 Personal history of other mental and behavioral disorders; Z87.09 Personal history of other diseases of the respiratory system; Z86.79 Personal history of other diseases of the circulatory system; Z87.39 Personal history of other diseases of the musculoskeletal system and connective tissue; Z76.0 Encounter for issue of repeat prescription
CPT/HCPCS: 99281

== ENCOUNTER 2017-11-16 17:41 | Emergency (ER) | payer SELFPAY ==
[~2017-11-16 17:41] MED LIST changes: +IBUP1TAB7 PO; -IBUP800T23 PO; +LORA-474 PO; -PAXI10TA2 PO; +PAXI10TA8 PO
[2017-11-16 17:43] VITALS: BP 123/85; PULSE 76; RESP 16; TEMP 98.6; O2SAT 98
[2017-11-16] MEDS ORDERED: DICL75TA PO (19:35)
--- NOTE | 2017-11-16 19:40 | PD ---
HPI Chief Complaint: Musculoskeletal Complaint Time Seen by Provider: 19:22 Travel History International Travel<30 days: No Contact w/Intl Traveler<30days: No Traveled to known affect area: No History of Present Illness HPI 32-year-old white female presents to emergency department with complains of left calf pain. She states that she was working at the [employer] when she was going down a set of stairs when she stumbled falling onto her right outstretched leg. She states that she had sudden severe pain in her left calf. She denies any numbness, tingling or weakness. No other injury. She did not fall to the ground. Since the injury on Wednesday she has had persistent pain. Some relief with elevation. Worsened by walking. PFSH Past Medical History Asthma: Yes Bipolar Disorder: Yes Anxiety: Yes Depression: Yes Cardiovascular Problems: Yes Cerebrovascular Accident: Yes Diabetes: No Diminished Hearing: No Fibromyalgia: Yes Respiratory: Yes (ASTHMA) Schizophrenia: Yes ?: Not LMP: 11/15/17 Tubal Ligation: Yes Past Surgical History Gynecologic Surgery: Yes (tubal ligation) Social History Alcohol Use: No Tobacco Use: No (DIP ) Substance Use: No Allergies-Medications (Allergen,Severity, Reaction): Coded Allergies: sulfamethoxazole (Unverified Allergy, Severe, RASH, 11/16/17) trimethoprim (Unverified Allergy, Severe, RASH, 11/16/17) Reported Meds & Prescriptions Reported Meds & Active Scripts Active Diclofenac Sodium DR (Diclofenac Sodium) 75 Mg Tabdr 75 Mg PO BID Review of Systems Except as stated in HPI: all other systems reviewed are Neg Physical Exam Narrative GENERAL: Well-developed, well-nourished in no acute distress. Nontoxic appearing. HEAD: Normocephalic, atraumatic. EYES: Pupils equal round and reactive. Extraocular motions intact. No scleral icterus. No injection or drainage. ENT: TMs clear without erythema. The external auditory canals clear. Nose: clear . Posterior pharynx is pink and moist. No tonsillar edema or exudate. Uvula midline. Airway patent. NECK: Trachea midline.Supple, nontender, moves head freely. No central bony tenderness or spasm. CARDIOVASCULAR: Regular rate and rhythm without murmurs, gallops, or rubs. RESPIRATORY: Clear to auscultation. Breath sounds equal bilaterally. No wheezes , rales, or rhonchi. GASTROINTESTINAL: Abdomen soft, non-tender, nondistended. No hepato-splenomegaly , or palpable masses. No guarding. EXTREMITIES: No clubbing, cyanosis, or edema. No joint tenderness, effusion, or edema noted. Examination of the left lower extremity reveals pain to the posterior calf. There is no erythema, warmth, ecchymosis or edema. She has intact positive Pardo test bilaterally. She has intact distal pulses and sensation. Her calf is supple. No pain in the knee, ankle or foot. Patient has exacerbation of her pain with dorsiflexion of the foot. Less with plantar flexion. BACK: Nontender without deformity or crepitance. No flank tenderness. Data Data Last Documented VS Vital Signs Date Time Temp Pulse Resp B/P (MAP) Pulse Ox O2 Delivery O2 Flow Rate FiO2 11/16/17 17:43 98.6 76 16 123/85 (98) 98 Orders Orders Ice/Cold Pack (11/16/17 19:33) Splint Or Brace Apply/Monitor (11/16/17 19:33) Crutches (11/16/17 19:33) Naproxen (Naprosyn) (11/16/17 19:45) MDM Medical Decision Making Medical Screen Exam Complete: Yes Emergency Medical Condition: Yes Medical Record Reviewed: Yes Differential Diagnosis MDM: High Differential diagnoses: Fracture, sprain, strain, dislocation, contusion, neurovascular injury Narrative Course This is left calf strain Patient given Naprosyn 500 mg, Niranjan wrap, crutches, ice pack. Diagnosis Primary Impression: left calf strain Patient Instructions: General Instructions Additional Instructions: Rest. Elevation. Ice packs for the next 3 days. Niranjan wrap and crutches. No weight-bearing and then progress to weight-bearing as tolerated. Medications as directed Follow-up with an orthopedist or your doctor in one week. Return to the ER if any problems Med/Other Pt SpecificInfo: Prescription(s) given Scripts Diclofenac Sodium DR (Diclofenac Sodium DR) 75 Mg Tabdr 75 MG PO BID, #20 TAB 0 Refills Prov: Tawanda Franks MD 11/16/17 Disposition: 01 DISCHARGE HOME Condition: Stable Donald Fournier Nov 16, 2017 19:40
[2017-11-16] MEDS ORDERED: NAPROXEN 500 MG TAB PO ONE (19:45)
== END 2017-11-16 19:57 | disposition home or self-care (01) ==
LOC: NEPK 17:41
DX: S86.112A Strain of other muscle(s) and tendon(s) of posterior muscle group at lower leg level, left leg, initial encounter (principal); W10.9XXA Fall (on) (from) unspecified stairs and steps, initial encounter; Y93.01 Activity, walking, marching and hiking; Y92.39 Other specified sports and athletic area as the place of occurrence of the external cause; Y99.0 Civilian activity done for income or pay
CPT/HCPCS: 99283; E0113

== ENCOUNTER 2017-12-03 13:19 | Emergency (ER) | payer SELFPAY ==
[~2017-12-03] VITALS: Ht 157.5 cm; Wt 72.5 kg
[~2017-12-03 13:19] MED LIST changes: +DICL75TA PO; -IBUP1TAB7 PO; -LORA-392 PO; -LORA-474 PO; -LURA20TA PO; -MACR100C2 PO; -METR-1 PO; -PAXI10TA8 PO; -ROBA500T PO
[2017-12-03 13:24] VITALS: BP 114/80; PULSE 79; RESP 18; TEMP 98.6; O2SAT 100
[2017-12-03] MEDS ORDERED: LURASIDONE 40 MG TAB PO ONE (14:45)
[2017-12-03] MEDS ORDERED: PARoxetine HCL 20 MG TAB PO ONE (14:45)
--- NOTE | 2017-12-03 14:50 | PD ---
HPI Chief Complaint: Psychiatric Symptoms Time Seen by Provider: 14:44 Travel History International Travel<30 days: No Contact w/Intl Traveler<30days: No Traveled to known affect area: No History of Present Illness HPI 32-year-old female with history of bipolar disorder here with anxiety regarding her prescriptions. Patient is normally seen at [facility] for outpatient therapy, and is afraid she will not get her refills tomorrow. She is scheduled to be there tomorrow for an evaluation and treatment and refill. She is worried that she cannot get a ride there. She is currently out of her meds including Latuda 40 mg and Paxil 20 mg daily. Patient is currently not suicidal or homicidal. Patient has no current medical problems. She is allergic to sulfa. PFSH Past Medical History Asthma: Yes Bipolar Disorder: Yes Anxiety: Yes Depression: Yes Cardiovascular Problems: Yes Cerebrovascular Accident: Yes Diabetes: No Diminished Hearing: No Fibromyalgia: Yes Respiratory: Yes Schizophrenia: Yes ?: Not LMP: 11/14/17 Tubal Ligation: Yes Past Surgical History Gynecologic Surgery: Yes (tubal ligation) Social History Alcohol Use: No Tobacco Use: No (DIP ) Substance Use: No Allergies-Medications (Allergen,Severity, Reaction): Coded Allergies: sulfamethoxazole (Unverified Allergy, Severe, RASH, 11/16/17) trimethoprim (Unverified Allergy, Severe, RASH, 11/16/17) Reported Meds & Prescriptions Reported Meds & Active Scripts Active Diclofenac Sodium DR (Diclofenac Sodium) 75 Mg Tabdr 75 Mg PO BID Review of Systems ROS Limitations: Other: Except as stated in HPI: all other systems reviewed are Neg General / Constitutional: No: Fever Eyes: No: Visual changes HENT: No: Headaches Cardiovascular: No: Chest Pain or Discomfort Respiratory: No: Shortness of Breath Gastrointestinal: No: Abdominal Pain Genitourinary: No: Dysuria Musculoskeletal: No: Pain Skin: No Rash Neurologic: No: Weakness Psychiatric: No: Depression Endocrine: No: Polydipsia Hematologic/Lymphatic: No: Easy Bruising Physical Exam Narrative GENERAL: Patient appears anxious but otherwise in no acute distress. SKIN: Warm and dry. Normal color. Normal turgor HEAD: Atraumatic. Normocephalic. EYES: Pupils equal and round. No scleral icterus. No injection or drainage. ENT: No nasal bleeding or discharge. Mucous membranes pink and moist. Pharynx is clear. Airway is patent NECK: Trachea midline. Supple nontender. CARDIOVASCULAR: Regular rate and rhythm. RESPIRATORY: No accessory muscle use. MUSCULOSKELETAL: Extremities without clubbing, cyanosis, or edema. No obvious deformities. NEUROLOGICAL: Awake and alert. No obvious cranial nerve deficits. Motor grossly within normal limits. Five out of 5 muscle strength in the arms and legs. Normal speech. PSYCHIATRIC: Appropriate mood and affect; insight and judgment normal. Data Data Last Documented VS Vital Signs Date Time Temp Pulse Resp B/P (MAP) Pulse Ox O2 Delivery O2 Flow Rate FiO2 12/03/17 13:24 98.6 79 18 114/80 (91) 100 Room Air Orders Orders Lurasidone (Latuda) (12/03/17 14:45) Paroxetine (Paxil) (12/03/17 14:45) Ed Discharge Order (12/03/17 14:50) [facility] Medical Decision Making Medical Screen Exam Complete: Yes Emergency Medical Condition: Yes Medical Record Reviewed: Yes Differential Diagnosis Bipolar disorder. Anxiety. Need for medication. Narrative Course Patient was seen by Stanislav, the upper caser who helps with throughput to [facility], and he feels he can get her bus passes for tomorrow. Patient is given her daily dose of Latuda 40 mg p.o. now. As well as Paxil 20 mg p.o. Patient is given bus pass and so she can get this to her [facility] tomorrow by case management. Patient should follow there or return emergency department as needed. Diagnosis Primary Impression: Bipolar 1 disorder Referrals: [facility] 1 day Patient Instructions: General Instructions Additional Instructions: Patient was seen by Stanislav, the upper caser who helps with throughput to [facility], and he feels he can get her bus passes for tomorrow. Patient is given her daily dose of Latuda 40 mg p.o. now. As well as Paxil 20 mg p.o. Patient is given bus pass and so she can get this to her [facility] tomorrow by case management. Patient should follow there or return emergency department as needed. Med/Other Pt SpecificInfo: No Change to Meds Disposition: 01 DISCHARGE HOME Condition: Stable Stanislav Fried Dec 03, 2017 14:50
== END 2017-12-03 15:31 | disposition home or self-care (01) ==
LOC: NEPD 13:19
DX: F31.9 Bipolar disorder, unspecified (principal); F20.9 Schizophrenia, unspecified; J45.909 Unspecified asthma, uncomplicated; M79.7 Fibromyalgia; Z86.73 Personal history of transient ischemic attack (TIA), and cerebral infarction without residual deficits; Z88.2 Allergy status to sulfonamides; Z79.899 Other long term (current) drug therapy
CPT/HCPCS: 99283

== ENCOUNTER 2017-12-03 18:49 | Emergency (ER) | payer SELFPAY ==
[2017-12-03 18:50] VITALS: BP 145/88; PULSE 110; RESP 26; TEMP 98.3; O2SAT 99
--- NOTE | 2017-12-03 19:52 | PD ---
HPI Chief Complaint: Psychiatric Symptoms Time Seen by Provider: 19:27 Travel History International Travel<30 days: No Contact w/Intl Traveler<30days: No Traveled to known affect area: No History of Present Illness HPI Patient is a 32-year-old female who was here earlier today seen by psych medically clear by ER attending and given her dose of her meds that she is been noncompliant , then her boyfriend reports they're walking down the road and all the noise of the cars is making her very anxious and overwhelmed so they come back to the ER to be B[place] acted according to mother mother insisted that she is a danger to herself she has a history of cutting she is worried she is going to jump in front of traffic and the mother insists she needs to stay even though she was seen earlier today and discharged after being medically screened by psychiatry and ER attending patient has no physical complaints at this time she has no cough no shortness of breath no abdominal pain no chest pain medically she is cleared I will have her rescreened by psychiatry PFS Past Medical History Asthma: Yes Bipolar Disorder: Yes Anxiety: Yes Depression: Yes Cardiovascular Problems: Yes Cerebrovascular Accident: Yes Diabetes: No Diminished Hearing: No Fibromyalgia: Yes Respiratory: Yes Schizophrenia: Yes Tubal Ligation: Yes Past Surgical History Gynecologic Surgery: Yes (tubal ligation) Social History Alcohol Use: No Tobacco Use: No (DIP ) Substance Use: No Allergies-Medications (Allergen,Severity, Reaction): Coded Allergies: sulfamethoxazole (Unverified Allergy, Severe, RASH, 12/03/17) trimethoprim (Unverified Allergy, Severe, RASH, 12/03/17) Reported Meds & Prescriptions Reported Meds & Active Scripts Active Diclofenac Sodium DR (Diclofenac Sodium) 75 Mg Tabdr 75 Mg PO BID Physical Exam Narrative GENERAL: holding her face not looking at me or answering questions ( mother doing entire interview for pt) SKIN: Warm and dry. HEAD: Atraumatic. Normocephalic. EYES: Pupils equal and round. No scleral icterus. No injection or drainage. ENT: No nasal bleeding or discharge. Mucous membranes pink and moist. NECK: Trachea midline. No JVD. CARDIOVASCULAR: Regular rate and rhythm. RESPIRATORY: No accessory muscle use. Clear to auscultation. Breath sounds equal bilaterally. GASTROINTESTINAL: Abdomen soft, non-tender, nondistended. Hepatic and splenic margins not palpable. MUSCULOSKELETAL: Extremities without clubbing, cyanosis, or edema. No obvious deformities. NEUROLOGICAL: Awake and alert. No obvious cranial nerve deficits. Motor grossly within normal limits. Five out of 5 muscle strength in the arms and legs. Normal speech. PSYCHIATRIC: Slightly regressed affect , childlike dependent behavior towards mother and boyfriend l. Data Data Last Documented VS Vital Signs Date Time Temp Pulse Resp B/P (MAP) Pulse Ox O2 Delivery O2 Flow Rate FiO2 12/04/17 10:08 12/04/17 06:14 98.8 74 18 97 Room Air Orders Orders Psych Screen (12/04/17 05:58) Diet Regular Basic (12/04/17 Breakfast) Ed Discharge Order (12/04/17 09:47) MDM Medical Decision Making Medical Screen Exam Complete: Yes Emergency Medical Condition: Yes Differential Diagnosis depression anxiety PTSD acute exacerbation vs malingering for unknown secondary gain , other Narrative Course medically cleared and transferred to pod Diagnosis Primary Impression: Depression Jerad Sy MD Dec 03, 2017 19:52
[2017-12-04 06:14] VITALS: BP 115/74; PULSE 74; RESP 18; TEMP 98.8; O2SAT 97
--- NOTE | 2017-12-04 12:10 | PD.PSY.CON ---
Provisional Diagnosis Admission Date [place] I. Bipolar disorder History of Present Illness Service Psychiatry Consult Requested By ER team Reason for Consult Requesting a psychiatric evaluation Primary Care Physician Pillo Butler D.O. ASHLEY The patient is a 32-year-old woman, domiciled, unemployed, with reported a psychiatric history of bipolar disorder, previous psychotic hospitalizations, she is not in psychotropics, no significant medical history, who was here yesterday trying to be seen by psych medically clear by ER attending and given her dose of her meds that she is been noncompliant , then her boyfriend reports they're walking down the road and all the noise of the cars is making her very anxious and overwhelmed so they come back to the ER to be B[place] acted according to mother mother insisted that she is a danger to herself she has a history of cutting she is worried she is going to jump in front of traffic and the mother insists she needs to stay even though she was seen earlier today and discharged after being medically screened by psychiatry and ER attending patient has no physical complaints at this time she has no cough no shortness of breath no abdominal pain no chest pain medically she is cleared I will have her rescreened by psychiatry. However, when I see the patient, she is calm, cooperative, she is says that she is just here because she wants to be reconnected with outpatient psychiatric care. She denies suicidal and homicidal ideation, she denies visual and auditory hallucinations. Review of Systems Constitutional: DENIES: Diaphoretic episodes, Fatigue, Fever, Weight gain, Weight loss, Chills, Dizziness, Change in appetite, Night Sweats Endocrine: DENIES: Abnorml menstrual pattern, Heat/cold intolerance, Polydipsia , Polyuria, Polyphagia Eyes: DENIES: Blurred vision, Diplopia, Eye inflammation, Eye pain, Vision loss , Photosensitivity, Double Vision Ears, nose, mouth, throat: DENIES: Tinnitus, Hearing loss, Vertigo, Nasal discharge, Oral lesions, Throat pain, Hoarseness, Ear Pain, Running Nose, Epistaxis, Sinus Pain, Toothache, Odynophagia Respiratory: DENIES: Apneas, Cough, Snoring, Wheezing, Hemoptysis, Sputum production, Shortness of breath Cardiovascular: DENIES: Chest pain, Palpitations, Syncope, Dyspnea on Exertion , PND, Lower Extremity Edema, Orthopnea, Claudication Gastrointestinal: DENIES: Abdominal pain, Black stools, Bloody stools, Constipation, Diarrhea, Nausea, Vomiting, Difficulty Swallowing, Anorexia Genitourinary: DENIES: Abnormal vaginal bleeding, Dysmenorrhea, Dyspareunia, Sexual dysfunction, Urinary frequency, Urinary incontinence, Urgency, Hematuria , Dysuria, Nocturia, Vaginal discharge Musculoskeletal: DENIES: Joint pain, Muscle aches, Stiffness, Joint Swelling, Back pain, Neck pain Integumentary: DENIES: Abnormal pigmentation, Pruritus, Rash, Nail changes, Breast masses, Breast skin changes, Nipple discharge Hematologic/lymphatic: DENIES: Bruising, Lymphadenopathy Immunologic/allergic: DENIES: Eczema, Urticaria Neurologic: DENIES: Abnormal gait, Headache, Localized weakness, Paresthesias, Seizures, Speech Problems, Tremor, Poor Balance Psychiatric: DENIES: Anxiety, Confusion, Mood changes, Depression, Hallucinations, Agitation, Suicidal Ideation, Homicidal Ideation, Delusions Past Family Social History Coded Allergies: sulfamethoxazole (Unverified Allergy, Severe, RASH, 12/03/17) trimethoprim (Unverified Allergy, Severe, RASH, 12/03/17) Active Scripts Diclofenac Sodium DR (Diclofenac Sodium DR) 75 Mg Tabdr, 75 MG PO BID, #20 TAB 0 Refills Prov:Tawanda Franks MD 11/16/17 Physical Exam Vital Signs Vital Signs Date Time Temp Pulse Resp B/P (MAP) Pulse Ox O2 Delivery O2 Flow Rate FiO2 12/04/17 10:08 12/04/17 06:14 98.8 74 18 97 Room Air Mental Status Examination Appearance: Appropriate Consciousness: Alert Orientation: x4 Motor Activity: Normal gait Speech: Unremarkable Language: Adequate Fund of Knowledge: Adequate Attention and Concentration: Adequate Memory: Unremarkable Mood: Appropriate Affect: Appropriate Thought Process & Associations: Intact Thought Content: Appropriate Hallucination Type: None Delusion Type: None Suicidal Ideation: No Suicidal Plan: No Suicidal Intention: No Homicidal Ideation: No Homicidal Plan: No Homicidal Intention: No Insight: Adequate Judgment: Adequate Assessment & Plan Problem List: (1) Bipolar 1 disorder ICD Codes: F31.9 - Bipolar disorder, unspecified Status: Acute Assessment & Plan: Patient doesn't meet criteria for involuntary psychiatric admission. She will be provided with referral for outpatient care in [facility]. Assessment & Plan Estimated LOS: Juan Pablo Cedillo MD Dec 04, 2017 12:09
== END 2017-12-04 10:12 | disposition home or self-care (01) ==
LOC: NEPC 18:49 → NEPJ 12-04 10:12
DX: F32.9 Major depressive disorder, single episode, unspecified (principal); F31.9 Bipolar disorder, unspecified; F41.9 Anxiety disorder, unspecified; F20.9 Schizophrenia, unspecified; J45.909 Unspecified asthma, uncomplicated; M79.7 Fibromyalgia; Z91.19 Patient's noncompliance with other medical treatment and regimen; Z86.73 Personal history of transient ischemic attack (TIA), and cerebral infarction without residual deficits; Z88.2 Allergy status to sulfonamides; Z79.899 Other long term (current) drug therapy
CPT/HCPCS: 99283

== ENCOUNTER 2018-01-27 05:18 | Emergency (ER) | payer SELFPAY ==
[~2018-01-27] VITALS: Ht 157.5 cm; Wt 70.0 kg
[2018-01-27 05:25] VITALS: BP 111/56; PULSE 88; RESP 18; TEMP 98.5; O2SAT 98
--- NOTE | 2018-01-27 07:07 | RADRPT ---
EXAM DATE/TIME: 01/27/2018 06:38 [facility] COMPARISON: HAND RIGHT COMPLETE ([id number]), February 21, 2017, 12:11. INDICATIONS : Right hand pain from unknown injury. MEDICAL HISTORY : None. SURGICAL HISTORY : Tubal ligation. ENCOUNTER: Initial ACUITY: 2 weeks PAIN SCORE: 4/10 LOCATION: Right hand. FINDINGS: Three view examination of the right hand demonstrates no soft tissue swelling, dislocation, or fractu re. The carpal bones appear intact. The interphalangeal and metacarpophalangeal joints are intact. Bony mineralization is normal. CONCLUSION: 1. No acute findings. Donald Boston MD on January 27, 2018 at 7:04 Board Certified Radiologist. This report was verified electronically.
--- NOTE | 2018-01-27 07:08 | RADRPT ---
EXAM DATE/TIME: 01/27/2018 06:38 [facility] COMPARISON: No previous studies available for comparison. INDICATIONS : Left hip pain from unknown injury. MEDICAL HISTORY : None. SURGICAL HISTORY : Tubal ligation. ENCOUNTER: Initial ACUITY: 2 weeks PAIN SCORE: 4/10 LOCATION: Left hip. FINDINGS: A two view examination of the left hip was performed. The primary and secondary trabecular pattern o f the femoral neck is intact. The hip joint is of normal width without significant sclerosis or bony hypertrophy. The acetabulum is grossly intact. CONCLUSION: 1. No acute findings. Donald Boston MD on January 27, 2018 at 7:06 Board Certified Radiologist. This report was verified electronically.
--- NOTE | 2018-01-27 07:09 | RADRPT ---
EXAM DATE/TIME: 01/27/2018 06:39 [facility] COMPARISON: No previous studies available for comparison. INDICATIONS : Left knee pain from unknown injury. MEDICAL HISTORY : None. SURGICAL HISTORY : Tubal ligation. ENCOUNTER: Initial ACUITY: 2 weeks PAIN SCORE: 4/10 LOCATION: Left knee. FINDINGS: Four view examination of the left knee demonstrates no evidence of fracture or dislocation. Bony min eralization is normal. The articular surfaces are intact. The suprapatellar soft tissues have a nor mal configuration. CONCLUSION: 1. No acute findings. Donald Boston MD on January 27, 2018 at 7:07 Board Certified Radiologist. This report was verified electronically.
[2018-01-27] MEDS ORDERED: MAPA500T13 PO (07:24)
[2018-01-27] MEDS ORDERED: IBUP1TAB7 PO (07:24)
--- NOTE | 2018-01-27 07:24 | PD ---
HPI Chief Complaint: Pain: Acute or Chronic Time Seen by Provider: 07:20 Travel History International Travel<30 days: No Contact w/Intl Traveler<30days: No Traveled to known affect area: No History of Present Illness HPI 32-year-old female presents emergency department with complaints of right lateral hand pain, right hip pain, and right knee pain. She states previous history of fracture to the right lateral hand which she "never got fixed" a year ago. She states she felt a "pop" has had pain there since Wednesday. She has not sure why her hip and knee hurt. She denies any specific injury. She denies taking anything for it. She has no fever, chills, or other constitutional symptoms. She is allergic to sulfa. PFSH Past Medical History Asthma: Yes Bipolar Disorder: Yes Anxiety: Yes Depression: Yes Cardiovascular Problems: Yes Cerebrovascular Accident: Yes Diabetes: No Diminished Hearing: No Fibromyalgia: Yes Respiratory: Yes Schizophrenia: Yes Tetanus Vaccination: < 5 Years Influenza Vaccination: No ?: Not LMP: 01/03/2018 Tubal Ligation: Yes Past Surgical History Gynecologic Surgery: Yes (tubal ligation) Social History Alcohol Use: No Tobacco Use: No (DIP ) Substance Use: No Allergies-Medications (Allergen,Severity, Reaction): Coded Allergies: sulfamethoxazole (Unverified Allergy, Severe, RASH, 01/27/18) trimethoprim (Unverified Allergy, Severe, RASH, 01/27/18) Reported Meds & Prescriptions Reported Meds & Active Scripts Active Mapap Extra Strength (Acetaminophen) 500 Mg Tab 1,000 Mg PO Q6HR PRN Ibuprofen 800 Mg Tab 800 Mg PO Q8H PRN Diclofenac Sodium DR (Diclofenac Sodium) 75 Mg Tabdr 75 Mg PO BID Review of Systems Except as stated in HPI: all other systems reviewed are Neg General / Constitutional: No: Fever Eyes: No: Visual changes HENT: No: Headaches Cardiovascular: No: Chest Pain or Discomfort Respiratory: No: Shortness of Breath Gastrointestinal: No: Abdominal Pain Genitourinary: No: Dysuria Musculoskeletal: Positive: Arthralgias, Pain (See history of present illness) Skin: No Rash Neurologic: No: Weakness Psychiatric: No: Depression Endocrine: No: Polydipsia Hematologic/Lymphatic: No: Easy Bruising Physical Exam Narrative GENERAL: Patient is in no acute distress per SKIN: Warm and dry. Normal color. Normal turgor HEAD: Atraumatic. Normocephalic. EYES: Pupils equal and round. No scleral icterus. No injection or drainage. ENT: No nasal bleeding or discharge. Mucous membranes pink and moist. Pharynx is clear. Airways patent. NECK: Trachea midline. Supple. CARDIOVASCULAR: Regular rate and rhythm. RESPIRATORY: No accessory muscle use. Clear to auscultation. Breath sounds equal bilaterally. MUSCULOSKELETAL: Extremities without clubbing, cyanosis, or edema. No obvious deformities. Range of motion is full in all extremities. NEUROLOGICAL: Awake and alert. No obvious cranial nerve deficits. Motor grossly within normal limits. Five out of 5 muscle strength in the arms and legs. Normal speech. PSYCHIATRIC: Appropriate mood and affect; insight and judgment normal. Data Data Last Documented VS Vital Signs Date Time Temp Pulse Resp B/P (MAP) Pulse Ox O2 Delivery O2 Flow Rate FiO2 01/27/18 05:25 98.5 88 18 111/56 (74) 98 Orders Orders Ice/Cold Pack (01/27/18 05:31) Hand, Complete ([id number]) (01/27/18 05:31) Hip, Uni(Ap&Lat) Wo Ap Pelvis (01/27/18 05:31) Knee, Complete ([id number]) (01/27/18 05:31) [facility] Medical Decision Making Medical Screen Exam Complete: Yes Emergency Medical Condition: Yes Differential Diagnosis Arthralgia. Dislocation. Malingering. Narrative Course X-rays are all within normal limits without signs of acute process. Patient is to take ibuprofen and Tylenol as prescribed. Patient can return to work without restriction Diagnosis Primary Impression: Arthrosis of multiple sites Referrals: [facility] Patient Instructions: Acetaminophen (By mouth), General Instructions, Ibuprofen (By mouth) Departure Forms: Work Release Enter return to work date: Jan 27, 2018 Additional Instructions: X-rays are all within normal limits without signs of acute process. Patient is to take ibuprofen and Tylenol as prescribed. Patient can return to work without restriction Med/Other Pt SpecificInfo: Prescription(s) given Scripts Acetaminophen (Mapap Extra Strength) 500 Mg Tab 1000 MG PO Q6HR Y for PAIN, #60 TAB 0 Refills Prov: Payton Barr MD 01/27/18 Ibuprofen (Ibuprofen) 800 Mg Tab 800 MG PO Q8H Y for Pain/Inflammation, #30 TAB 0 Refills Prov: Payton Barr MD 01/27/18 Disposition: 01 DISCHARGE HOME Condition: Stable Stanislav Fried Jan 27, 2018 07:24
== END 2018-01-27 07:43 | disposition home or self-care (01) ==
LOC: NEPK 05:18
DX: M19.90 Unspecified osteoarthritis, unspecified site (principal); J45.909 Unspecified asthma, uncomplicated; F31.9 Bipolar disorder, unspecified; F41.9 Anxiety disorder, unspecified; Z86.73 Personal history of transient ischemic attack (TIA), and cerebral infarction without residual deficits; M79.7 Fibromyalgia; F20.9 Schizophrenia, unspecified; Z72.0 Tobacco use
CPT/HCPCS: 73130; 73502; 73564; 99284

== ENCOUNTER 2018-04-05 07:56 | Emergency (ER) | payer SELFPAY ==
[~2018-04-05 07:56] MED LIST changes: +IBUP1TAB7 PO; +MAPA500T13 PO
[2018-04-05 08:05] VITALS: BP 124/74; PULSE 91; RESP 16; TEMP 98.2; O2SAT 100
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
[2018-04-05 09:44] LABS: BACTERIA, URINE OCC /hpf; BILIRUBIN, URINE NEG (NEG); BLOOD, URINE TRACE (NEG); GLUCOSE,URINE NEG (NEG); KETONE, URINE NEG (NEG); MUCUS URINE FEW /lpf (OCC); NITRITE,URINE NEG (NEG); SQUAMOUS EPITHELIAL CELL URINE 5 /hpf (0-5); TRANSITIONAL EPI CELLS, URINE 1 /hpf; URINE COLOR YELLOW (YELLW/STRAW); URINE LEUKOCYTE ESTERASE LARGE (NEG)
[2018-04-05] MEDS ORDERED: NITR100C4 PO (09:58)
[2018-04-05] MEDS ORDERED: IBUP1TAB7 PO (09:58)
[2018-04-05 10:15] VITALS: BP 122/62
== END 2018-04-05 10:24 | disposition home or self-care (01) ==
LOC: NEPD 07:56
DX: N39.0 Urinary tract infection, site not specified (principal); R68.84 Jaw pain; Y04.0XXA Assault by unarmed brawl or fight, initial encounter; J45.909 Unspecified asthma, uncomplicated; F31.9 Bipolar disorder, unspecified; F41.9 Anxiety disorder, unspecified; Z86.73 Personal history of transient ischemic attack (TIA), and cerebral infarction without residual deficits; M79.7 Fibromyalgia; F20.9 Schizophrenia, unspecified
CPT/HCPCS: 70150; 81001; 84703; 87086; 99284